=== PATIENT | male | born 1950 | race Caucasian/White ===

== ENCOUNTER 2020-02-25 09:25 | Emergency (ER) | payer MEDICARE ==
[~2020-02-25] VITALS: Ht 177.8 cm; Wt 59.0 kg
--- NOTE | 2020-02-25 09:49 | NUR ---
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
--- NOTE | 2020-02-25 10:01 | NUR ---
THIS IS A 70 YR OLD MALE C/O NAUSEA AND VOMITING AFTER MEALS FOR THE LAST 6 WEEKS. PT WAS RECENTLY SEEN AT [facility] AND REFERED TO [facility] FOR FOLLOW UP. NIBP, O2 MIONITORING IN PLACE. MD AT BEDSIDE.
--- NOTE | 2020-02-25 10:31 | NUR ---
PT BACK FROM X RAY. LABS COMPLETED. PT RESTING COMFORTABLY IN BED. CALL LIGHT AT SIDE.
[2020-02-25 10:33] LABS: BASOPHILS # (AUTO) 0.06 x10^3/uL (0-0.1); BASOPHILS % (AUTO) 1 % (0-1); EOSINOPHILS # (AUTO) 0.09 x10^3/uL (0-0.4); EOSINOPHILS % (AUTO) 1 % (1-7); LYMPHOCYTES # (AUTO) 1.68 x10^3/uL (1-3.4); LYMPHOCYTES % (AUTO) 16 % (22-44); MD NO; MEAN CORPUSCULAR HEMOGLOBIN 33.2 pg (27.5-34.5); MEAN CORPUSCULAR VOLUME 100.8 fL (81-97); MEAN PLATELET VOLUME 6.7 fL (7.4-10.4); MONOCYTES # (AUTO) 1.13 x10^3/uL (0.2-0.8); MONOCYTES % (AUTO) 11 % (2-9); NEUTROPHILS # (AUTO) 7.84 x10^3/uL (1.8-6.8); NEUTROPHILS % (AUTO) 73 % (42-75); PLATELET COUNT 512 x10^3/uL (130-400); RED BLOOD COUNT 4.27 x10^6/uL (4.38-5.82); RED CELL DISTRIBUTION WIDTH 12.9 % (9.4-14.8)
[2020-02-25 10:36] LABS: ALANINE AMINOTRANSFERASE 25 U/L (12-78); ALBUMIN 4.1 g/dL (3.4-5.0); ANION GAP 12 mmol/L (5-15); CALCIUM 9.8 mg/dL (8.5-10.1); CHLORIDE 100 mmol/L (98-107); CREATININE 0.95 mg/dL (0.7-1.3)
[2020-02-25 10:39] LABS: ALKALINE PHOSPHATASE 79 U/L (45-117); BILIRUBIN,TOTAL 0.9 mg/dL (0.2-1.0)
[2020-02-25 10:54] VITALS: BP 132/91
== END 2020-02-25 11:26 | disposition home or self-care (01) ==
LOC: ED 10:35
DX: K29.20 Alcoholic gastritis without bleeding (principal); I10 Essential (primary) hypertension
CPT/HCPCS: 36415; 74021; 80053; 83690; 85025; 99284